=== PATIENT | female | born 1955 | race Caucasian/White ===

== ENCOUNTER → 2016-11-19 | Outpatient (CLI) | payer MEDICARE, BC ==
--- NOTE | 2016-11-25 15:44 | HM ---
The patient was monitored for 24 hours, the baseline rhythm is a sinus mechanism with normal conduction. The average rate is 92 beats per minute, minimum is 60, maximum 144 beats per minute. Ventricular ectopic activity was present in the form of rare single PVCs. Supraventricular ectopic activity was present in the form of rare single PACs. The patient had runs of supraventricular tachycardia, rate of 144 beats per minute that was asymptomatic. Symptoms of heart pounding, very hard, pressure in the head, stomach on fire, shortness of breath did not correlate with any clear dysrhythmia. CONCLUSION: 1. Sinus mechanism as baseline rhythm. 2. Rare ventricular ectopic activity. 3. Rare supraventricular ectopic activity. 4. Episode of AV татьяна re-entry tachycardia that was asymptomatic. 5. Symptoms did not correlate with any dysrhythmia. [facility]
== END | disposition home or self-care (01) ==
LOC: RADECHMAIN 11:05
PROVIDERS: ATTEND Internal Medicine Hematology & Oncology
DX: R00.2 Palpitations (principal)
CPT/HCPCS: 93225; 93226

== ENCOUNTER → 2017-03-23 | Outpatient (CLI) | payer MEDICARE, BC ==
--- NOTE | 2017-03-23 11:21 | US ---
EXAMINATION TYPE: US venous doppler duplex LE BI DATE OF EXAM: 03/23/2017 11:05 AM COMPARISON: NONE CLINICAL HISTORY: M79.662,M79.661,R22.42,R22.41 PAIN/SWELLING IN LOWER LIMBS. Personal history of can cer SIDE PERFORMED: Bilateral TECHNIQUE: The lower extremity deep venous system is examined utilizing real time linear array sonog yovany with graded compression, doppler sonography and color-flow sonography. FINDINGS: VESSELS IMAGED: External Iliac Vein (EIV) Common Femoral Vein Deep Femoral Vein Greater Saphenous Vein * Femoral Vein Popliteal Vein Proximal Calf Veins (* superficial vessels) Right Leg: Negative for DVT Left Leg: Positive for DVT , there is thrombus seen in the anterior branch of the upper to mid pop v ein, this is nonocclusive with partial compressibility. IMPRESSION: 1. Left leg positive for DVT. There is incompletely occlusive thrombus within the anterior branch of the upper to mid popliteal vein. No occlusive thrombus seen. 2. Right leg negative for DVT from the groin to the upper calf.
== END | disposition home or self-care (01) ==
LOC: RADUSWWP 10:17
PROVIDERS: ATTEND Internal Medicine Hematology & Oncology
DX: I82.432 Acute embolism and thrombosis of left popliteal vein (principal); M79.661 Pain in right lower leg; R22.41 Localized swelling, mass and lump, right lower limb; R22.42 Localized swelling, mass and lump, left lower limb
CPT/HCPCS: 93970

== ENCOUNTER 2017-04-10 16:12 | Emergency (ER) | payer MEDICARE, BC ==
[2017-04-10 16:27] VITALS: BP 112/77; PULSE 85; RESP 16; TEMP 97.6
--- NOTE | 2017-04-10 16:36 | ED ---
General Adult HPI - General Chief complaint: Extremity Injury, Lower Stated complaint: L Ankle Pain Time Seen by Provider: 04/10/17 16:23 Source: patient, family, RN notes reviewed Mode of arrival: wheelchair Limitations: no limitations - History of Present Illness Initial comments: This is a 61-year-old female who presents to the emergency department with chief complaint of left ankle injury. Patient states that 1 hour prior to arrival she was standing trying to put her right shoe on. She felt like her right knee gave out causing her to twist her left ankle. Patient states pain is localized to the lateral aspect of her left ankle. Pain is made worse with movement. States she is unable to ambulate due to pain. She reports a history of stage IV metastatic breast cancer that has spread to her spinal cord and cerebrospinal fluid. One month ago she fell and has since had to walk with a walker. Denies fever, chills, chest pain, shortness of breath, abdominal pain, nausea or vomiting, constipation or diarrhea, dysuria or hematuria, numbness or tingling, headache or vision changes. - Related Data Home Medications Medication Instructions Recorded Confirmed B Complex-Vit C-Vit E-Zinc [Z-Bec] 1 tab PO DAILY 09/14/13 12/18/15 Levothyroxine Sodium [Synthroid] 175 mcg PO DAILY 09/14/13 12/18/15 Ibuprofen [Motrin] 800 mg PO Q6HR PRN 12/28/13 12/18/15 HYDROcodone/APAP 10-325MG [Veguita 1 tab PO Q6H PRN 12/12/15 12/18/15 10-325] Levofloxacin [Levaquin] 750 mg PO DAILY 12/12/15 12/18/15 Latanoprost Ophth [Xalatan 0.005%] 1 drops BOTH EYES HS 12/13/15 12/18/15 Allergies Allergy/AdvReac Type Severity Reaction Status Date / Time No Known Allergies Allergy Verified 04/10/17 16:22 Review of Systems ROS Statement: Those systems with pertinent positive or pertinent negative responses have been documented in the HPI. ROS Other: All systems not noted in ROS Statement are negative. Past Medical History Past Medical History: Cancer, Eye Disorder, GI Bleed, Hypertension, Osteoarthritis (OA), Sleep Apnea/CPAP/BIPAP, Thyroid Disorder Additional Past Medical History / Comment(s): Stage 4 metastatic breast ca 2006 , Lt upper extremity lymphedema-chronic, Bone mets, hx. of GI bleed, Glaucoma. Finished chemo on 11-26. Started on 12-10-15 an antxb. for Lymphedema. History of Any Multi-Drug Resistant Organisms: MRSA Date of last positivie culture/infection: 11/07/2014 MDRO Source:: Left Leg Past Surgical History: Breast Surgery, Section, Tonsillectomy Additional Past Surgical History / Comment(s): 90% thyroidectomy, left mastectomy and lymph node removal, right chest port, tumor removed from L shoulder. Past Anesthesia/Blood Transfusion Reactions: No Reported Reaction Past Psychological History: No Psychological Hx Reported Smoking Status: Former smoker Past Alcohol Use History: None Reported Past Drug Use History: None Reported - Past Family History Mother Family Medical History: Cancer, CVA/TIA, Hypertension Additional Family Medical History / Comment(s): Bilateral breast CA Father Family Medical History: AICD/Pacemaker, Cancer, Dementia, Hypertension Additional Family Medical History / Comment(s): Colon CA Brother(s) Family Medical History: CVA/TIA, Hypertension Additional Family Medical History / Comment(s): Hemmorhagic stroke, Sister(s) Family Medical History: Cancer, Diabetes Mellitus, Hypertension Additional Family Medical History / Comment(s): Breast General Exam - General Exam Comments Initial Comments: General: Awake and alert, well-developed; in no apparent distress. Sitting in wheelchair at bedside. HEENT: Head atraumatic, normocephalic. Pupils are equal, round and reactive to light. Extraocular movements intact. Oropharynx moist without erythema or exudate. Neck: Supple. Normal ROM. Cardiovascular: Regular rate and rhythm. No murmurs, rubs or gallops. Chest symmetrical. Respiratory: Lungs clear to auscultation bilaterally. No wheezes, rales or rhonchi. Normal respiratory effort with no use of accessory muscles. Musculoskeletal: Bilateral lower extremities have chronic non-pitting edema and hyperpigmentation changes. Tenderness on palpation and mild swelling of lateral left ankle. No bony point tenderness of the lateral malleolus. Sensation is intact. Pain is elicited with plantar flexion and inversion. Skin: [place], warm and dry without rashes or lesions. Neurological: Alert and oriented x3. CN II-XII grossly intact. Speech is fluent and answers are appropriate. No focal neuro deficits. Psychiatric: Normal mood and affect. No overt signs of depression or anxiety noted. Limitations: no limitations Course Vital Signs 04/10/17 16:22 Temperature 97.6 F Pulse Rate 85 Respiratory 16 Rate Blood Pressure 112/77 O2 Sat by Pulse 100 Oximetry Procedures - Orthopedic Splinting/Casting Injury #1 Side: left Lower Extremity Injury Location: ankle Lower Extremity Immobilizer: posterior splint, synthetic pre-padded splint Additional Comments: short leg OCL. Patient tolerated well without complication. Neurovascularly intact. Medical Decision Making - Medical Decision Making This is a 61-year-old female who presents for evaluation of left ankle injury. Patient has tenderness at the lateral aspect of left ankle. X-ray revealed evidence for ligamentous avulsion at lateral malleolus. Posterior short leg OCL was placed on right ankle. Patient tolerated well without complication. Patient advised to use walker during ambulation. Recommended ice and elevation. She will be discharged home with referral to orthopedics to follow up with on Wednesday. She states that she sees Dr. Paz. Phone number and contact information provided for her. Patient is in agreement and voiced understanding. All questions were answered. 2. - Radiology Data Radiology results: report reviewed Left ankle x-ray impression: 1. Some lucency along the posterior malleolus on the lateral view could be projectional artifact with the fibula just behind. Subtle nondisplaced posterior malleolus fracture difficult to exclude. 2. A 5 mm density along the dorsal aspect of the patellar head could represent a capsular avulsion fracture fragment. 3. Age indeterminant minute 6 mm bone fragment below the lateral malleolus likely related to ligamentous avulsion injury. Correlate for focal pain here in order to assess chronicity. 4. Marked dorsal midfoot degenerative change and pes planus. 5. Calcifications at the base of the fifth metatarsal probably relating to peroneal tendinopathy or old injury. Disposition Clinical Impression: Ankle sprain and strain Disposition: HOME SELF-CARE Condition: Poor Instructions: Ankle Sprain (ED) Additional Instructions: Please follow up with Dr. Paz on Wednesday. Please ice and elevate ankle multiple times daily. Please continue to use walker while ambulating. Please follow up with primary care provider within 1-2 days. Return to emergency department if symptoms should worsen or any concerns arise. Referrals: Freddy Bray DO [Primary Care Provider] - 1-2 days Ace Paz DO [Doctor of Osteopathic Medicine] - 1-2 days Time of Disposition: 17:22
--- NOTE | 2017-04-10 16:50 | XR ---
EXAMINATION TYPE: XR ankle complete LT DATE OF EXAM: 04/10/2017 COMPARISON: NONE HISTORY: 61-year-old female twisting injury today, pain TECHNIQUE: Previous FINDINGS: Moderate to large plantar calcaneal spur. Mild pes planus. Prominent dorsal mid foot degenerative yoselin nge. There is a 5 mm ossific density along the dorsal aspect of the talar head. Some lucency along the pos terior malleolus on the lateral view could be projectional artifact with the fibula. A 6 mm ossific d ensity below the lateral malleolus is also noted. Ankle mortise remains congruent. No loss of the dis natalia tibiofibular overlap. Talar dome appears intact. There is some density at the base of the fifth m etatarsal that does not seem to represent an acute fracture. IMPRESSION: 1. Some lucency along the posterior malleolus on the lateral view could be projectional artifact with the fibula just behind. Subtle nondisplaced posterior malleolus fracture difficult to exclude. 2. 5 mm density along the dorsal aspect of the talar head could represent a capsular avulsion fractur e fragment. 3. Age-indeterminate 6 mm bone fragment below the lateral malleolus likely relating to ligamentous av ulsion injury. Correlate for focal pain here in order to assess chronicity. 4. Marked dorsal midfoot degenerative change and pes planus. 5. Calcifications at the base of the fifth metatarsal probably relating to peroneal tendinopathy or o ld injury.
== END 2017-04-10 17:28 | disposition home or self-care (01) ==
LOC: EC 16:12
DX: S93.402A Sprain of unspecified ligament of left ankle, initial encounter (principal); E07.9 Disorder of thyroid, unspecified; G47.30 Sleep apnea, unspecified; Z99.89 Dependence on other enabling machines and devices; Z85.3 Personal history of malignant neoplasm of breast; Z86.14 Personal history of Methicillin resistant Staphylococcus aureus infection; Z87.891 Personal history of nicotine dependence; Z86.69 Personal history of other diseases of the nervous system and sense organs; Z79.899 Other long term (current) drug therapy; X50.1XXA Overexertion from prolonged static or awkward postures, initial encounter
CPT/HCPCS: 29515; 99283